=== PATIENT | male | born 1980 | race Caucasian/White ===

== ENCOUNTER 2020-06-23 17:28 | Emergency (ER) | payer SELFPAY ==
[2020-06-23 19:36] LABS: APPEARANCE,URINE CLEAR; BILIRUBIN,URINE NEGATIVE (NEGATIVE); COLOR,URINE YELLOW; GLUCOSE, URINE NEGATIVE (NEGATIVE); KETONES,URINE NEGATIVE (NEGATIVE); LEUKOCYTE ESTERASE,URINE NEGATIVE (NEGATIVE); NITRITE,URINE NEGATIVE (NEGATIVE); PROTEIN,URINE 30 mg/dL (NEGATIVE)
--- NOTE | 2020-06-23 19:44 | PSYCHOLOGICAL NOTE ---
<BLOOM,LAVON - Last Filed: 06/23/20 19:36> Psych Note - Psych Note Date seen by psych provider: 06/23/20 Time seen by psych provider: 18:45 - 1905 Psych Note: Reason for Consult:Suicidal ideation Consent Permissions: none provided Patient arrived to [facility] ED via POV for suicidal ideation. Patient reports increase in despondency after the of his uncle a year ago. Patient reports feeling alone and difficulty controlling his anxiety and depression. Patient attempted to start medications at the suggestion of his . Patient went to [facility] for medication management was started on lithium 300 mg daily. Lamin new has now on his fourth month of medication and reports he is feels no different. Patient reports that he feels all he really needs is somebody to talk to that will listen. He reports difficulty in talking with friends and family about his depression and missing his uncle because they always think it something else like bills or other finances. Patient discloses not wanting to hurt people's feelings and every time he does try to talk with his family about his emotions it ends up in an argument so has been spending more time alone. He identifies that he feels better when he is with people so his depression has increased because he does not want to get into arguments. Patient reports passive suicidal ideation that comes and goes and states that he does not want to . Patient reports he just feels alone and has no one to talk to now that he is the only man in the family after losing his grandfather who raised him 13 years ago and then his uncle a year ago. Patient is alert and oriented to person,place time and circumstance. Mood is dysphoric with congruent affect. Patient is reporting passive suicidal ideation (ie no plan, means, or intent) that comes and goes; patient denies he wants to . Patient denies homicidal ideation. Delusions are absent and behavioral is congruent with an intact reality based presentation i.e. organized in the thought process. Eye contact is well maintained. Conversational speech is within normal rate, tone and prosody. Intellectual abilities appear to be within average range. Attention and concentration is good. Insight, judgment, impulse control appear to be good. Clinical Presentation: bereavement anxiety IVC Criteria per [place] GS 122C Dangerous to others Within the relevant past the individual No has inflicted or attempted to inflict or threatened to inflict serious bodily harm on another AND No that there is a reasonable probability that this conduct will be repeated as there is an absence of supervision or structure to prevent. OR No has acted in such a way as to create a substantial risk of serious bodily harm to another AND No that there is a reasonable probability that this conduct will be repeated as there is an absence of supervision or structure to prevent. OR No has engaged in extreme destruction of property AND NO that there is a reasonable probability that this conduct will be repeated as there is an absence of supervision or structure to prevent. Previous episodes of dangerousness to others, when applicable, may be considered when determining reasonable probability of future dangerous conduct. Clear, cogent, and convincing evidence that an individual has committed a homicide in the relevant past is prima facie evidence of dangerousness to others. Dangerous to self Within the relevant past the individual has done any of the following: acted in such a way as to show ALL of the following: No The individual would be unable without care, supervision, and the continued assistance of others not otherwise available, to exercise self- control, judgment, and discretion in the conduct of the individual's daily responsibilities and social relations or to satisfy the individual's need for nourishment, personal or medical care, senior care, or self-protection and safety. AND No There is a reasonable probability of the individual suffering serious physical debilitation within the near future unless adequate treatment is given. A showing of behavior that is grossly irrational, of actions that the individual is unable to control, of behavior that is grossly inappropriate to the situation, or of other evidence of severely impaired insight and judgment shall create a prima facie inference that the individual is unable to care for himself or herself. OR YES has attempted suicide or threatened suicide AND No that there is a reasonable probability of suicide unless adequate treatment is given as there is an absence of supervision or structure to prevent suicide of patient who has made an attempt, serious gesture or threat. Patient reports passive suicidal ideation (ie no plan means or intent) that comes and goes. Patient demonstrated strong insight in to treatment development reporting that he "just wants to be able to talk to someone not take pills." OR No has mutilated himself or herself or attempted to mutilate himself or herself AND No that there is a reasonable probability of serious self-mutilation unless adequate treatment is given as there is an absence of supervision or structure to prevent. NOTE: Previous episodes of dangerousness to self, when applicable, may be considered when determining reasonable probability of physical debilitation, suicide, or self-mutilation. Medication recommendations per [facility] contracted psychiatrist are as follows: Stop home medication of lithium Impression\\plan: Patient is cleared from acute psychiatric services. Patient reports passive suicidal ideation (ie no plan means or intent) that comes and goes. Patient demonstrated strong insight in to treatment development reporting that he "just wants to be able to talk to someone not take pills." Patient reports has been isolating from friends and family because he doesn't want to hurt anyone feelings. He disclosed that anytime he tries to talk aobut his fee lings, it ends up in an argument; "so i just keep to myself." Dr. Arreola was consulted to care management of this patient; attending physicians in agreement with recommendations and disposition. <MARGOTH ARREOLA - Last Filed: 06/24/20 08:48> Psych Note - Psych Note Psych Note: Patient is cleared from acute psychiatric services. He was provided outpatient resources for mental health crisis and encouraged to return to his MH Provider [facility] and advise them of his ED visit and the difficulties he is having and request individual therapy, as he is only receiving medication management at this time. Patient reported he has strong family support though he has difficulty engaging them. He was provided psychoeducation on the importance of talking with trusted family members so that he did not feel isolated. Additionally, he would likely find they felt in a similar fashion. Patient was also provided the National Suicide Hotline phone number, [place] Crisis phone number, [facility] contact information, and advised him to contact 911 or go to the nearest emergency department should he feel in crisis or suicidal. *It is common medical knowledge that there is no reliable way to predict who will ultimately commit suicide. The majority of psychiatric patients do have multiple suicide risk factors, however the majority of psychiatric patients do not commit suicide. Stable chronic risk factors are usually not a reason for psychiatric admission and acute stressors must be considered in the context of the patient's presentation to determine the appropriate treatment level; therefore, the risk factors are to b e considered in the context of the entire evaluation of the patient and in the context of their specific circumstance. The patient is capable of withholding information as desired.
[2020-06-23 19:57] LABS: URINE AMPHETAMINES SCREEN NEGATIVE; URINE BARBITURATES SCREEN NEGATIVE; URINE BENZODIAZEPINES SCREEN NEGATIVE; URINE COCAINE SCREEN NEGATIVE; URINE METHADONE SCREEN NEGATIVE; URINE PHENCYCLIDINE SCREEN NEGATIVE
[2020-06-23 20:01] LABS: URINE MARIJUANA (THC) SCREEN UNCONFIRMED POSITIVE
--- NOTE | 2020-06-23 20:10 | ER Document Report ---
ED General - Related Data Home Medications: [place] - General Chief Complaint: Suicidal Ideation Stated Complaint: SUCIDIAL IDEATIONS Time Seen by Provider: 06/23/20 19:09 Primary Care Provider: [facility] [Outside] - Follow up as needed DANIELITO JULES MD [Primary Care Provider] - Follow up as needed - [facility] Notes: Patient presents to the emergency department for evaluation of increased depression, thoughts of hurting himself. They are only passive. He states to me that he has no thoughts of hurting himself actively. He just feels frustrated. He feels like he can talk to his family, really just want someone to talk to. He denies any history of suicide attempt. No homicidal ideation. No visual or auditory hallucination. Medically, he states he is doing well. He denies any fevers or chills, cough or shortness of breath. He is eating and drinking normally. He does states he does not believe that the lithium is working well for him. (MEL IRAHETA) - Related Data Allergies/Adverse Reactions: No Known Allergies Allergy (Verified 06/23/20 19:12) Past Medical History - General Information source: Patient - Social History Smoking Status: Current Every Day Smoker Frequency of alcohol use: Rare Drug Abuse: Marijuana Family History: Reviewed & Not Pertinent Psychiatric Medical History: Reports: Hx Bipolar Disorder - family history, Hx Depression Review of Systems - Review of Systems Constitutional: No symptoms reported EENT: No symptoms reported Cardiovascular: No symptoms reported Respiratory: No symptoms reported Gastrointestinal: No symptoms reported Genitourinary: No symptoms reported Musculoskeletal: No symptoms reported Skin: No symptoms reported Neurological/Psychological: See HPI Physical Exam - Vital signs Vitals: Temp Pulse Resp BP Pulse Ox 98.2 F 66 16 141/85 H 98 06/23/20 17:32 06/23/20 17:32 06/23/20 17:32 06/23/20 17:32 06/23/20 17:32 - Notes Notes: There is a 40-year-old male who presents 2 days, no acute distress. He is calm, cooperative, appropriate hygiene and affect. Vital signs reviewed, please refer to chart. Head is normocephalic, atraumatic. Pupils equal round, reactive to light. Neck is supple without meningismus. Heart is regular rate and rhythm. Lungs are clear to auscultation bilaterally. Abdomen is soft, nontender, normoactive bowel sounds throughout. Extremities without cyanosis, clubbing. Posterior calves are nontender. Peripheral pulses are equal. Skin is warm and dry. Patient is awake, alert, neurological exam is nonfocal. (MEL IRAHETA) Course - Laboratory Results Critical Laboratory Results Reviewed: No Critical Results - Radiology Results Critical Radiology Results Reviewed: No Critical Results - Re-evaluation Re-evalutation: 06/23/20 22:22 Patient presents emergency department for evaluation. Orders were placed as per protocol. This patient is not actively suicidal. He denies any thoughts of hurting himself at this time. I actually did talk to his daughter, he pointed out that he has a great relationship with her and his other child, as well as his , he has no thoughts of hurting himself. The psychosocial team evaluation agrees with this assessment. He was given outpatient resources and feels comfortable with discharge. He is to return to the ED with worsening. (MEL IRAHETA) - Vital Signs Vital signs: Temp Pulse Resp BP Pulse Ox 98.0 F 67 19 124/76 99 06/23/20 18:39 06/23/20 18:39 06/23/20 18:39 06/23/20 18:39 06/23/20 18:39 - Laboratory Results Laboratory Results Interpreted: 06/23/20 19:10 Urine Protein 30 H Urine Urobilinogen 4.0 H Discharge - Discharge Clinical Impression: Grief, Anxiety, Passive suicidal ideations Condition: Stable Disposition: HOME, SELF-CARE Additional Instructions: You have been evaluated both medical and behavioral teams have been deemed appropriate for discharge. You have been vital local resources including [facility] mobile crisis and [place] crisis contact information. Please return if symptoms increase or new symptoms arise. National Suicide Prevention Lifeline DEPRESSION: Your evaluation reveals that you have mental depression. While symptoms may be vague, they often include disturbance of sleep, fatigue, loss of appetite, and general loss of interest in life. While depression may be a side effect of drugs, or a reaction to a major change in your life, many cases have no known cause. If depression is acute, and related to a major loss in your life, you can expect it to clear completely with time. If you have been depressed a long time, are prone to repeated bouts of depression or low mood, or have been thinking of suicide, get help. Depression can be treated with anti-depressant medication and counselling. Long-term depression will often take a few weeks to clear, even with appropriate medication. Follow-up care is important. SUICIDAL IDEATION: Suicidal ideation is a common medical term for thoughts about suicide, which may be as detailed as a formulated plan, without the suicidal act itself. Although most people who undergo suicidal ideation do not commit suicide, some go on to make suicide attempts. The range of suicidal ideation varies greatly from fleeting to detailed planning, role playing, and unsuccessful attempts. While thoughts about suicide are common, most people do not carry out serious actions to commit suicide. Based upon your evaluation and discussion with you, we do not believe you are currently at risk to act upon your thoughts of suicide. You have agreed to return to the Emergency Department, at any time, if you feel inclined to act upon your suicidal thoughts. FOLLOW-UP CARE: If you have been referred to a physician for follow-up care, call the physicians office for an appointment as you were instructed or within the next two days. If you experience worsening or a significant change in your symptoms, notify the physician immediately or return to the Emergency Department at any time for re-evaluation. Referrals: DANIELITO JULES MD [Primary Care Provider] - Follow up as needed [facility] [Outside] - Follow up as needed
[2020-06-23 22:34] VITALS: BP 128/74
== END 2020-06-23 22:34 | disposition home or self-care (01) ==
LOC: ER 17:28
DX: R45.851 Suicidal ideations (principal); F43.21 Adjustment disorder with depressed mood; F41.9 Anxiety disorder, unspecified; F17.200 Nicotine dependence, unspecified, uncomplicated
CPT/HCPCS: 80307; 81001; 99285